=== PATIENT | male | born 1995 | race Caucasian/White ===

== ENCOUNTER 2017-07-27 03:22 | Emergency (ER) | payer OTHER ==
[~2017-07-27] VITALS: Ht 177.8 cm; Wt 83.9 kg
[2017-07-27 03:29] VITALS: Ht 177.8 cm; Wt 83.9 kg
[2017-07-27 04:11] VITALS: BP 133/81
== END 2017-07-27 04:11 | disposition home or self-care (01) ==
LOC: ED 03:22
DX: S93.402A Sprain of unspecified ligament of left ankle, initial encounter (principal); X50.1XXA Overexertion from prolonged static or awkward postures, initial encounter; Y93.39 Activity, other involving climbing, rappelling and jumping off; Y99.8 Other external cause status; Y92.89 Other specified places as the place of occurrence of the external cause
CPT/HCPCS: J1885; Q0092

== ENCOUNTER 2017-07-29 21:05 | Emergency (ER) | payer OTHER ==
[~2017-07-29] VITALS: Ht 172.7 cm; Wt 87.1 kg
[2017-07-29 22:27] VITALS: BP 134/67
== END 2017-07-29 22:27 | disposition home or self-care (01) ==
LOC: ED 21:05
DX: S93.402D Sprain of unspecified ligament of left ankle, subsequent encounter (principal); X58.XXXD Exposure to other specified factors, subsequent encounter

== ENCOUNTER 2019-05-14 10:56 | Emergency (ER) | payer OTHER | END 2019-05-14 16:47 | disposition other institution (70) | LOC: ED 10:56 | DX: Z02.89 Encounter for other administrative examinations (principal) ==

== ENCOUNTER 2019-05-14 10:56 | Emergency (ER) | payer SELFPAY ==
[~2019-05-14] VITALS: Ht 172.7 cm; Wt 77.1 kg
[2019-05-14 11:54] LABS: BASOPHIL % 0.6 % (0-2); PLATELET COUNT 249 x10^3mcL (130-400)
[2019-05-14 12:04] LABS: CALCIUM 9.2 mg/dL (8.5-10.1); CARBON DIOXIDE 23.6 mmol/L (21-32); CHLORIDE SERUM 107 mmol/L (98-107); CREATININE SERUM 1.3 mg/dL (0.7-1.3); GFR1 > 60 mL/min; GLUCOSE SERUM 62 mg/dL (74-106); POTASSIUM SERUM 3.9 mmol/L (3.5-5.1); SODIUM SERUM 144 mmol/L (136-145)
[2019-05-14 12:17] LABS: ALBUMIN 4.5 g/dL (3.4-5.0); ALKALINE PHOSPHATASE 67 U/L (46-116); ALT/SGPT 29 U/L (16-63); AST/SGOT 21 U/L (15-37); TOTAL PROTEIN, SERUM 7.7 g/dL (6.4-8.2)
[2019-05-14 16:46] VITALS: BP 122/69
== END 2019-05-14 16:47 | disposition other institution (70) ==
LOC: ED 10:56
PROVIDERS: Emergency Medicine
DX: S60.221A Contusion of right hand, initial encounter (principal); S10.91XA Abrasion of unspecified part of neck, initial encounter; F23 Brief psychotic disorder; E86.0 Dehydration; X58.XXXA Exposure to other specified factors, initial encounter; Y93.89 Activity, other specified; Y92.89 Other specified places as the place of occurrence of the external cause; Y99.8 Other external cause status
CPT/HCPCS: 36415; 90715; G0480; J1630; J2001; J2060; Q0092